=== PATIENT | female | born 1955 | race Caucasian/White ===

== ENCOUNTER 2018-11-25 11:26 | Emergency (ER) | payer OTHER ==
[~2018-11-25] VITALS: Ht 172.7 cm; Wt 113.4 kg
[~2018-11-25 11:26] MED LIST: ATENOLOL5 GM; BIDIL TABLET1 EACH PO; CLOPIDOGREL75 MG PO; DITROPAN XL10 MG PO; FENOFIBRATE40 MG PO; NITROSTAT0.4 MG SL; PILOCARPINE HCL5 MG PO; TENORMIN50 MG PO; VIBRAMYCIN100 MG PO; VITAMIN D400 UNIT PO
[2018-11-25] MEDS ORDERED: CARAFATE1 GM PO (14:55)
--- NOTE | 2018-11-26 07:49 | EKG ---
[facility] [address] [facility] [place] [address] Signed Sinus bradycardia Left axis deviation Possible Anterolateral infarct , age undetermined Abnormal ECG When compared with ECG of 18-JUN-2018 23:50, Borderline criteria for Anterior infarct are now present Borderline criteria for Anterolateral infarct are now present Inverted T waves have replaced nonspecific T wave abnormality in Anterior leads Confirmed by TAMIA ROBINS MD ([id number]) on 11/26/2018 7:48:55 AM Electronically Signed By: TAMIA ROBINS MD 11/26/18 0749 PATIENT NAME: JAZZMINE HOBBS Electrocardiogram DATE OF : 53 PHYSICIAN: TAMIA ROBINS MD REPORT #: [id number] REPORT IS CONFIDENTIAL AND NOT TO BE RELEASED WITHOUT AUTHORIZATION
== END 2018-11-25 15:11 | disposition home or self-care (01) ==
LOC: ED 11:26
DX: K21.9 Gastro-esophageal reflux disease without esophagitis (principal); I10 Essential (primary) hypertension; E78.5 Hyperlipidemia, unspecified; E11.40 Type 2 diabetes mellitus with diabetic neuropathy, unspecified; G30.9 Alzheimer's disease, unspecified; Z88.1 Allergy status to other antibiotic agents; Z91.018 Allergy to other foods; Z79.899 Other long term (current) drug therapy
CPT/HCPCS: 36415; 71045; 80053; 84484; 85025; 86318; 93005; 93010; 99285-25

== ENCOUNTER 2020-10-29 13:50 | Emergency (ER) | payer MEDICARE, OTHER ==
[~2020-10-29] VITALS: Ht 172.7 cm; Wt 107.2 kg
[~2020-10-29 13:50] MED LIST changes: +ASPIR-LOW81 MG PO; -BIDIL TABLET1 EACH PO; +BISACODYL5 MG PO; +CARAFATE1 GM PO; +COLACE100 MG PO; +DILTIAZEM 24HR240 M1 PO; +HUMALOG100 UNIT/2 SUB-Q; +ISOSORBIDE MONO60 MG PO; +LANTUS100 UNITS/ SUB-Q; +MAGOX 400400 MG PO; +METOPROLOL SUC100 MG PO; +PROTONIX40 MG PO; +RED YEAST RICE600 MG PO; +TENORMIN100 MG PO; -TENORMIN50 MG PO; -VITAMIN D400 UNIT PO; +VITAMIN D50000 UNI1 PO; +ZANTAC150 MG PO; +ZETIA10 MG PO; +ZONEGRAN25 MG PO
--- OUTSIDE RECORDS SUMMARY | 2020-10-29 13:54 | XMS ---
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 E.D. VISIT COUNT (12 MO.) 1 [facility] 1 [facility] [facility] TOTAL 3 NOTE: Visits indicate total known visits. ED/UCC VISIT TRACKING (12 MO.) 10/29/2020 13:[address] [facility] [place] TYPE: Emergency COMPLAINT: - CONSTIPATION 10/10/2020 21:56 [facility] [place] TYPE: Emergency DIAGNOSES: - Constipation - Constipation, unspecified - abdominal pain 09/01/2020 20:31 [facility] Samara BISW[facility] TYPE: Emergency DIAGNOSES: - Palpitations - Other fatigue - Hypertension - Palpitations - chest palpitations, headache INPATIENT VISIT TRACKING (12 MO.) No inpatient visits to display in this time frame [email or web address]
[2020-10-29] MEDS ORDERED: GOLYTELY SOLU4000 ML PO (17:12)
== END 2020-10-29 17:25 | disposition home or self-care (01) ==
LOC: ED 13:50
DX: K59.00 Constipation, unspecified (principal); I11.0 Hypertensive heart disease with heart failure; I50.9 Heart failure, unspecified; E11.9 Type 2 diabetes mellitus without complications; I48.91 Unspecified atrial fibrillation; E11.40 Type 2 diabetes mellitus with diabetic neuropathy, unspecified; Z88.1 Allergy status to other antibiotic agents; Z88.8 Allergy status to other drugs, medicaments and biological substances; Z79.899 Other long term (current) drug therapy; Z79.4 Long term (current) use of insulin; Z79.82 Long term (current) use of aspirin
CPT/HCPCS: 74018; 99283-25